=== PATIENT | male | born 1950 | race Caucasian/White ===

== ENCOUNTER 2022-04-12 23:22 | Emergency (ER) | payer MEDICARE, SELFPAY ==
[2022-04-12 23:18] VITALS: BP 149/101; PULSE 115; RESP 16; TEMP 36.8; O2SAT 97
[2022-04-12 23:45] VITALS: BP 173/89; PULSE 108; RESP 14; O2SAT 95
[2022-04-13] MEDS: hydrALAZINE HCL 20 MG/ML VIAL IV PUSH (00:23)
--- NOTE | 2022-04-13 00:26 | ED_ITS ---
HPI - Epistaxis General Chief complaint: Epistaxis Stated complaint: NOSEBLEED Time Seen by Provider: 04/12/22 23:36 History of Present Illness HPI Narrative: 71-year-old male with an extensive history of hypertension presents to the emergency room for epistaxis. Patient states bleeding is been ongoing for several hours. Also reports earlier today he was seen in ENT where bleeding from his right nare was cauterized. Patient denies any facial injury or trauma. Also complains of a headache at this time. Related Data Allergies Allergy/AdvReac Type Severity Reaction Status Date / Time shellfish derived Allergy Mild Anaphylaxis Verified 04/13/22 00:23 lisinopril Allergy Swelling Verified 04/12/22 23:29 of Lip/Tongue/Throat Review of Systems Review of Systems: CONSTITUTIONAL: Denies fever, chills, or sweats. EYES: Denies visual changes, redness, or discharge. ENT: Reports epistaxis CARDIOVASCULAR: Denies chest pain, palpitations, or edema. RESPIRATORY: Denies cough or dyspnea. GASTROINTESTINAL: Denies abdominal pain, nausea, vomiting, or diarrhea. GENITOURINARY: Denies dysuria or hematuria. SKIN: Denies rash or itching. MUSCULOSKELETAL: Denies back pain, joint pain, or myalgia. NEUROLOGIC: Denies headache, numbness, dizziness, or weakness. PSYCHIATRIC: Denies anxiety or depression. Exam Narrative: GENERAL: Well-appearing, well-nourished, no physical limitations, and in no acute distress. HEAD: Normocephalic, atraumatic. EYES: Conjunctivae normal, PERRLA and EOMI. ENT: External nose normal, epistaxis noted in right nare. NECK: Supple. No meningeal signs. No adenopathy or masses. No carotid bruits or JVD CHEST: Clear to auscultation. No respiratory distress. No wheezes rales or rhonchi. No tenderness. HEART: Regular rate and rhythm. No murmur heard. Normal peripheral pulses.. EXTREMITIES: Normal range of motion. No edema. No clubbing or cyanosis SKIN: Warm, dry, no rash. No noted wounds NEURO: No focal deficits. Alert and oriented x3. MAEW. CN's II-XI intact bilaterally, normal gait PSYCH: Cooperative. Normal mood and affect. Course Vital Signs Vital signs: Vital Signs Temperature 36.8 C 04/12/22 23:18 Pulse Rate 115 H 04/12/22 23:18 Respiratory Rate 16 04/12/22 23:18 Blood Pressure 149/101 H 04/12/22 23:18 Pulse Oximetry 97 04/12/22 23:18 Oxygen Delivery Room Air 04/12/22 23:18 Temperature 36.8 C 04/12/22 23:18 Pulse Rate 102 H 04/13/22 01:00 Respiratory Rate 20 04/13/22 01:00 Blood Pressure 164/86 H 04/13/22 01:00 Pulse Oximetry 100 04/13/22 01:00 Oxygen Delivery Room Air 04/12/22 23:18 Discharge Plan Discharge Clinical Impression: Epistaxis Patient Disposition: Home, Self-Care Condition: Stable Instructions: Antibiotic Form, Nosebleed (ED) Additional Instructions: Follow-up with ENT, Dr. Johnson on Friday to get your Rhino Rocket removed. Also recommend calling your kayak maker about blood pressure management. Follow-up/Referrals: Vasile Johnson MD [Physician] - [facility],Nilesh Diaz MD [Primary Care Provider] - Time of Disposition: 01:14
[2022-04-13 00:31] VITALS: BP 161/82; PULSE 104; RESP 17; O2SAT 94
[2022-04-13 01:00] VITALS: BP 164/86; PULSE 102; RESP 20; O2SAT 100
[2022-04-13 01:31] VITALS: BP 153/83; PULSE 95; RESP 14; O2SAT 94
[2022-04-13 02:15] VITALS: BP 153/81; PULSE 90; RESP 16; O2SAT 100
== END 2022-04-13 02:40 | disposition home or self-care (01) ==
PROVIDERS: Emergency Provider Nurse Practitioner Family; PCP Family Medicine
DX: R04.0 Epistaxis (principal); I10 Essential (primary) hypertension
CPT/HCPCS: 30901; 96374; 99284; A9270; J0360

== ENCOUNTER 2022-04-13 09:08 | Emergency (ER) | payer MEDICARE, SELFPAY ==
[2022-04-13 09:29] VITALS: BP 161/70; PULSE 67; RESP 14; TEMP 36.2; O2SAT 98
[2022-04-13] MEDS: OXYMETAZOLINE HCL 0.05% NAS 15 ML BTL (*BKC) 1 SPRAY NASAL (11:28)
[2022-04-13] MEDS: TRANEXAMIC ACID 1,000 MG/10 ML AMPUL 1000 MG TOPICAL (11:29)
[2022-04-13 11:58] LABS: Hematocrit 47.3 % (42.0-52.0); Hemoglobin 15.6 g/dL (14.0-18.0)
[2022-04-13 12:08] LABS: Partial Thromboplastin Time 29.7 SECONDS (22.3-36.8); Prothrombin Time 12.7 Seconds (11.1-14.7)
[2022-04-13 13:00] VITALS: BP 138/68; PULSE 76; RESP 18; O2SAT 99
--- NOTE | 2022-04-13 13:32 | ED.EPISTAXIS ---
HPI - Epistaxis General Chief complaint: Epistaxis Stated complaint: nose bleed packing leaking. History of Present Illness HPI Narrative: 71yoM p/w epistaxis since yday, thinks it might have started after manipulation by ENT several days ago. Had come in yesterday and have been packed with Rhino Rocket, but states that started having bleeding again today. Denies any other symptoms. Related Data Allergies Allergy/AdvReac Type Severity Reaction Status Date / Time lisinopril Allergy Severe Swelling Verified 04/13/22 11:26 of Lip/Tongue/Throat shellfish derived Allergy Mild Anaphylaxis Verified 04/13/22 00:23 Review of Systems Review of Systems: CONST: No fever. HEENT: Nosebleed C/V: No chest pain RESP: No cough GI: No abdominal pain : No dysuria. M/S: No joint pain. SKIN: No rash. NEURO: [No headache or focal numbness or weakness] PSYCH: [No depression] [facility] Past Medical History Medical History (Updated 04/13/22 @ 18:06 by Jessica Prado MD) Hypertension Family History Family History (Updated 04/13/22 @ 18:06 by Jessica Prado MD) Other Hypertension Exam Narrative: EXAMINATION OF ORGAN SYSTEMS/BODY AREAS: Constitutional: Vital signs per nursing GENERAL:[No acute distress, non-toxic appearing.] HEAD: Normal with no signs of head trauma. EYES: EOMI, conjunctiva normal ENT: Packing R nare intact with dried blood; some dried blood in L nare LUNGS: Nonlabored breathing. HEART: [Regular rate and rhythm] ABD: [Soft], [nontender to palpation] EXT: Normal range of motion SKIN: [No rashes or lesions.] NEURO: [Alert and oriented x 3. No gross focal sensory or strength deficits.] PSYCH: Normal affect Course Vital Signs Vital signs: Vital Signs Temperature 97.1 F L 04/13/22 09:29 Pulse Rate 67 04/13/22 09:29 Respiratory Rate 14 04/13/22 09:29 Blood Pressure 161/70 H 04/13/22 09:29 Pulse Oximetry 98 04/13/22 09:29 Oxygen Delivery Room Air 04/13/22 09:29 Temperature 97.1 F L 04/13/22 09:29 Pulse Rate 78 04/13/22 14:51 Respiratory Rate 18 04/13/22 14:51 Blood Pressure 140/86 04/13/22 14:51 Pulse Oximetry 99 04/13/22 14:51 Oxygen Delivery Room Air 04/13/22 09:29 Procedures Epistaxis Control right: Nose Prepped With: lidocaine and oxymetazoline Direct Inspection: unable to visualize Device Inserted: hemostatic balloon Patient Tolerated Procedure: well and no complications MDM - Epistaxis MDM Narrative Medical decision making narrative: 71-year-old presenting with persistent epistaxis, vital stable, exam he is not having any active bleeding, labs obtained which are normal. He is given TXA and Afrin sprays, continues to not have any active bleeding. He is concerned about the Rhino Rocket being saturated so I did replace it on his request, but initial Rhino Rocket did not show much blood, and the second Rhino Rocket was placed without any issues. He was watched here for another hour and had no rebleeding, stable for discharge home at this time with return precautions and follow-up to ENT. Lab Data Result diagrams: 04/13/22 11:37 Labs: Lab Results 04/13/22 04/13/22 Range/Units 11:37 11:37 Hgb 15.6 (14.0-18.0) g/dL Hct 47.3 (42.0-52.0) % PT 12.7 (11.1-14.7) Seconds INR 1.0 APTT 29.7 (22.3-36.8) SECONDS Discharge Plan Discharge Clinical Impression: Epistaxis Patient Disposition: Home, Self-Care Condition: Stable Instructions: Antibiotic Form, Nosebleed (ED) Additional Instructions: Please follow up with the ENT; you can always come back if you are unable to stop the nosebleed. Follow-up/Referrals: Vasile Johnson MD [Physician] - 2 Days [facility],Nilesh Diaz MD [Primary Care Provider] -
[2022-04-13 14:51] VITALS: BP 140/86; PULSE 78; RESP 18; O2SAT 99
== END 2022-04-13 14:52 | disposition home or self-care (01) ==
PROVIDERS: Emergency Provider Emergency Medicine; PCP Family Medicine
DX: R04.0 Epistaxis (principal); I10 Essential (primary) hypertension
CPT/HCPCS: 30901; 36415; 85014; 85018; 85610; 85730; 96374; 99283; A9270; J0360